=== PATIENT | female | born 1955 | race Caucasian/White ===

== ENCOUNTER 2018-12-22 10:00 | Observation (INO) ==
--- NOTE | 2018-12-22 11:59 | General Surg History&Physical ---
Date of Encounter: 12/22/18 Time of Encounter: 11:00 Assessment and Plan (1) Cutaneous fistula Current Visit: Yes Status: Acute The assessment and plan as outlined above was discussed with the patient and/or family members who expressed understanding and agreement. All questions were answered. Culture wound now; then place packing Diabetic diet, then NPO at Midnight IVF at midnight CBC, BMP, PT/INR ATBX pending gram stain (start now or on-call to OR) GI and DVT prophylaxis EKG for baseline recommendations, risks, and benefits have been expressly reviewed by Dr. Kay in the office and a signed consent is placed on the patient's hard chart. We w ill plan for surgical intervention on 12/23/2018 including robotic diagnostic laparoscopy. (2) T2DM (type 2 diabetes mellitus) Current Visit: Yes Status: Chronic The assessment and plan as outlined above was discussed with the patient and/or family members who expressed understanding and agreement. All questions were answered. 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 All questions were answered. Continue home meds when applicable Normotensive (4) CKD (chronic kidney disease) stage 3, GFR 30-59 ml/min Current Visit: Yes Status: Chronic The assessment and plan as outlined above was discussed with the patient and/or family members who expressed understanding and agreement. All questions were answered. Labs pending Recommendations based on labs (5) Atherosclerotic heart disease Current Visit: Yes Status: Chronic The assessment and plan as outlined above was discussed with the patient and/or family members who expressed understanding and agreement. All questions were answered. [facility] 06/2017 noted minimal atherosclerotic coronary artery disease, LVEF 55%, distal LAD diffuse disease, negative remodeling. No stents were placed. Last echo with LVEF 60 to 65%, mild diastolic dysfunction. She denied any symptoms of angina as outpatient and is able to complete greater than 4 Mets of activity. We will obtain a baseline EKG. No further cardiovascular workup indicated at this time. Qualifiers: Coronary Disease-Associated Artery/Lesion type: [place] artery [place] vs. transplanted heart: [place] heart Associated angina: without angina Qualified Code(s): I25.10 - Atherosclerotic heart disease of [place] coronary artery without angina pectoris History of Present Illness Chief complaint: drainage from belly button HPI: Ms. Morales is a 63 year old female who presents for add-on robotic diagnostic laparoscopy with Dr. Kay on . Sonali is well-know to our [facility] for aprox the last 2 years. She has a [recent] surgical history of attempted laparoscopic Teena fundoplication converted to open Teena fundoplication and hiatal hernia repair, lysis of adhesions for 30 minutes, explant of abdominal wall mesh by Dr. Hopper on 07/02/2017. Robotic incisional hernia repair with primary herniorrhaphy and 12 x 20 cm mesh, lysis of adhesions on 10/28/[address] Kay for which she has been followed in the office for umbilical drainage. She has had a wound vac placed on 11/13/2018 and noted significant improvement in follow-up on 11/20/2018. She then saw Dr. Kay on and stated the drainage had decreased and denied foul odor. She was recommended to continue the wound VAC for an additional 2 weeks and if that that time the cavity was not decreased significantly she may need return to the operating room. Per record review, she saw Dr. Kay on 12/15/2018 and the wound VAC was removed. She called the office on 12/16/2018 reporting that the wound VAC had been removed the day previous, packing placed into her site, and she was scheduled for surgery on 01/13/2019. She then began having copious amounts of thick, green/yellow, foul-smelling drainage. She was advised to come to the hospital for admission on 12/22/2018 and have her case added on for 12/23/2018. Presently, she denies fever, headache, dizziness, chest pain, shortness of breath, abdominal pain, urinary signs or symptoms, changes in bowel habits. She endorses drainage from the bellybutton as previously described. She has no other complaints. Past Med Surg Social Fam HX - Past Medical History Source: patient Medical history: coronary artery disease, diabetes, GERD, hypertension, s eizures, valvular heart disease, other Additional medical history: hard of hearing, seizure xa?, LHC, Psychiatric history: anxiety, depression - Past Surgical History Surgical History: appendectomy, cancer surgery, cholecystectomy, herniorrhaphy (H umbilical hernia repair 2006, hiatal hernia repair and medicine fundoplication 2018, robotic incisional hernia repair 2019), other Additional surgical history: tubal,lhc, mohs, teena - Social History Smoking Status: Former smoker Smokeless Tobacco Status: No Alcohol use: none Drug use: none Occupational status: retired Current living situation: Home - Independent Activity Level: Independent ambulation Recent Out of Country Travel Within the Last 8 Weeks: No Exposure or Possible Exposure to Illness During Travel: No Medications and Allergies Aspirin [Lo-Dose Aspirin EC] 81 mg PO QAM 10/23/16 [History] Atorvastatin Calcium [Lipitor] 20 mg PO HS 10/23/16 [History] Gabapentin [Neurontin] 600 mg PO TID 10/23/16 [History] Glimepiride [Amaryl] 2 mg PO BID 10/23/16 [History] Insulin Glargine,Hum.rec.anlog [Lantus Solostar] 80 unit SQ QAM 10/23/16 [His tory] Liraglutide [Victoza 2-Thuan] 1.8 mg SQ QAM 10/23/16 [History] dilTIAZem HCl [Diltiazem HCl] 120 mg PO QAM 10/23/16 [History] Cholecalciferol (D-3) [Vitamin D] 1,000 units PO QAM 07/02/18 [History] Nitroglycerin [Nitrostat] 0.4 mg SL PRN PRN 07/02/18 [History] Cyclobenzaprine [Flexeril] 10 mg PO HS PRN 07/03/18 [History] Insulin ASPART [Novolog Flexpen] 20 units SQ TIDWM 07/03/18 [History] Insulin Glargine,Hum.rec.anlog [Lantus Solostar] 50 units SQ HS 07/03/18 [History] Lisinopril [Zestril] 10 mg PO QAM 10/28/18 [History] Metoprolol [Lopressor] 25 mg PO BID 10/28/18 [History] OxyCODONE/APAP 5/325 [Percocet 5/325 MG] 1 each PO Q6HR PRN 7 Days #10 tablet 10/28/18 [Rx] Allergy/AdvReac Type Severity Reaction Status Date / Time No Known Allergies Allergy Verified 10/28/18 13:39 Review of Systems All systems PM: reviewed and no additional remarkable complaints except as stated All systems PM: The remainder of the systems were reviewed and are negative General Surgery Exam Initial Vital Signs Temp Pulse Resp BP Pulse Ox 97.7 F 63 16 97/61 97 12/22/18 11:43 12/22/18 11:43 12/22/18 11:43 12/22/18 11:43 12/22/18 11:43 Vital Signs Temp Pulse Resp BP Pulse Ox 12/22/18 11:43 97.7 F 63 16 97/61 97 Intake and Output 12/21/18 12/22/18 12/22/18 23:59 07:59 15:59 Other: Weight 85.899 kg Blood Glucose* 255 Patient Weight 12/22/18 23:59 Weight 85.899 kg VITAL SIGNS: Reviewed. See [facility] GENERAL: In no apparent distress. HEENT: Normocephalic, atraumatic, [place], pupils are equal and reactive, extraocular motions intact, oropharynx is pink and moist, there is no neck adenopathy or JVD noted. CHEST/RESPIRATORY: The thorax is free from signs of trauma. Lung sounds: clear to auscultation, normal respiratory effort CARDIAC: Regular rate and rhythm. Normal S1 and S2, without murmurs, gallops, or rubs. VASCULAR: No Edema. 2+ peripheral pulses. ABDOMEN: soft, nontender, active bowel sounds. Foul-smelling green drainage noted from the umbilicus. There is no surrounding cellulitis or induration. MUSCULOSKELETAL: Good range of motion of all major joints. Extremities without clubbing, cyanosis or edema. NEUROLOGIC EXAM: Alert and oriented x 3. Speech normal. Follows commands. PSYCHIATRIC: Mood normal. SKIN: No rash or lesions. Results - Labs 12/22/18 11:16 12/22/18 11:16 All other labs normal.
[2018-12-22 12:11] LABS: Basophils # 0.1 K/mcL (0.0-0.2); Basophils % 0.7 %; Eosinophils # 0.2 K/mcL (0.0-0.6); Eosinophils % 2.8 %; Hematocrit 33.4 % (35.3-44.9); Hemoglobin 10.7 g/dL (11.5-15.4); Immature Granulocytes % 0.2 % (0-4); Lymphocytes # 1.7 K/mcL (0.6-4.6); Lymphocytes % 20.3 %; Mean Corpuscular Hemoglobin 27.6 pg (28.0-33.3); Mean Corpuscular Volume 86.1 fL (83.0-100.0); Monocytes # 0.6 K/mcL (0.0-1.3); Monocytes % 7.2 %; Neutrophils # 5.7 K/mcL (1.6-8.9); Platelet Count 228 K/mcL (140-400); Red Blood Count 3.88 M/mcL (3.82-4.97); Red Cell Distribution Width 14.7 % (11.5-14.5); Segmented Neutrophils % 68.8 %; White Blood Count 8.3 K/mcL (4.3-11.1)
[2018-12-22 12:21] LABS: Prothrombin Time 11.4 Seconds (9.4-12.1)
[2018-12-22] MEDS ORDERED: Dextrose Gel 15 GM/37.5 ML TUBE PO PRN ×2 (12:21)
[2018-12-22 12:24] LABS: Activated Partial Thrombo Time 34.6 Seconds (26.0-36.0)
[2018-12-22] MEDS: Pantoprazole 40 MG VIAL IVP SCH (12:35)
[2018-12-22 12:44] LABS: Calcium 9.2 mg/dL (8.6-10.3)
[2018-12-22 13:04] LABS: Estimated Average Glucose 160 mg/dl
[2018-12-22] MEDS: Insulin LISPRO 300 UNITS/3 ML VIAL SQ SCH ×3 (13:18→23:49)
[2018-12-22] MEDS: Piperacillin/Tazobactam 3.375 GM in 0.9 % Sodium Chloride Mini Bag 100 ML IVPB SCH ×2 (17:48→23:41)
[2018-12-22] MEDS: 0.9 % Sodium Chloride 1,000 ML IVC SCH (23:41)
[2018-12-23] MEDS: Insulin LISPRO 300 UNITS/3 ML VIAL SQ SCH ×4 (06:01→23:53)
[2018-12-23] MEDS: 0.9 % Sodium Chloride 1,000 ML IVC SCH ×3 (07:43→23:27)
[2018-12-23] MEDS: Pantoprazole 40 MG VIAL IVP SCH (07:44)
[2018-12-23] MEDS: Piperacillin/Tazobactam 3.375 GM in 0.9 % Sodium Chloride Mini Bag 100 ML IVPB SCH ×2 (07:44→18:37)
--- NOTE | 2018-12-23 10:13 | General Surgery Progress Note ---
Date of Encounter: 12/23/18 Time of Encounter: 09:00 - Assessment and Plan (1) Cutaneous fistula Current Visit: Yes Status: Acute Wound cultures pending- preliminary shows that bacteria is present, few gram positive and gram negative bacteria present IV antibiotics- Zosyn Plan to proceed to the operating room for a diagnostic laparosocpy in the next [address] 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 Diabetes mellitus complication status: with kidney complications Diabetes mellitus complication detail: with chronic kidney disease Chronic kidney disease stage: stage 3 (moderate) Qualified Code(s): E11.22 - Type 2 diabetes mellitus with diabetic chronic kidney disease; N18.3 - Chronic kidney disease, stage 3 (moderate); Z79.4 - snf (current) use of insulin (3) HTN, goal below 130/80 Current Visit: Yes Status: Chronic Normotensive Resume home regimen of Metoprolol (4) CKD (chronic kidney disease) stage 3, GFR 30-59 ml/min Current Visit: Yes Status: Chronic Stable Repeat am labs I&Os (5) Atherosclerotic heart disease Current Visit: Yes Status: Chronic Qualifiers: Coronary Disease-Associated Artery/Lesion type: [place] artery [place] vs. transplanted heart: [place] heart Associated angina: without angina Qualified Code(s): I25.10 - Atherosclerotic heart disease of [place] coronary artery without angina pectoris (6) DVT prophylaxis Current Visit: Yes Status: Acute Ambulate hallways TID with assistance EPCDs to bilateral lower extremities for DVT prophylaxis Subjective Patient reports: no new complaints, voiding w/o difficulty, afebrile, other (Patient reports continued purulent, foul drainage from her wound) Objective Vital Signs - Last 8 Hours Temp Pulse Resp BP Pulse Ox 12/23/18 06:53 97.7 F 68 18 120/65 97 12/23/18 02:52 97.6 F 68 15 129/63 97 Intake and Output 12/22/18 12/23/18 12/23/18 23:59 07:59 15:59 Intake Total 100 / 100 1100 / 1100 Balance 100 / 100 1100 / 1100 Intake: IV Fluids 100 / 100 1100 / 1100 0.9 % Sodium Chloride 1,000 ML 1000 / 1000 @ 125 mls/hr IVC .Q8H DIMITRI Rx#: [id number] Zosyn 3.375 GM In 0.9 % Sodium 100 / 100 100 / 100 Chloride (Mini-Bag +) 100 ML @ 25 mls/hr IVPB Q8HR DIMITRI Rx#: [id number] Other: Meal NPO for Breakfast Blood Glucose* 210 71 - General physical appearance well developed, well nourished, no distress - Eyes normal ocular movement - ENT normal mucosa, atraumatic, normocephalic - Neck Neck exam: trachea midline - Respiratory normal respiratory effort, clear to auscultation - Cardiovascular Cardiovascular exam: Present: RRR - Abdomen Abdomen: Present: bowel sounds present, soft, non tender, wound (open with purulent, foul drainage noted (umbilical), no surrounding erythema or induration noted.) - Neurologic CN 2-12 grossly intact - Musculoskeletal normal gait, normal posture - Psychiatric oriented to time, oriented to person, oriented to place, speech is normal, memory intact - Labs 12/22/18 11:16 12/22/18 11:16 Diabetes panel 12/22/18 12/22/18 Range/Units 11:16 11:16 Sodium 140 (136-145) mEq/L Potassium 4.0 (3.5-5.1) mEq/L Chloride 102 (98-107) mEq/L Carbon Dioxide 29 (23-29) mEq/L BUN 21 (8-23) mg/dL Creatinine 1.44 H (0.60-1.20) mg/dL Glucose 251 H (70-105) mg/dL Hemoglobin A1c 7.2 H ( - 5.6) % Calcium 9.2 (8.6-10.3) mg/dL Calcium panel 12/22/18 Range/Units 11:16 Calcium 9.2 (8.6-10.3) mg/dL Pituitary panel 12/22/18 Range/Units 11:16 Sodium 140 (136-145) mEq/L Potassium 4.0 (3.5-5.1) mEq/L Chloride 102 (98-107) mEq/L Carbon Dioxide 29 (23-29) mEq/L BUN 21 (8-23) mg/dL Creatinine 1.44 H (0.60-1.20) mg/dL Glucose 251 H (70-105) mg/dL Calcium 9.2 (8.6-10.3) mg/dL Adrenal panel 12/22/18 Range/Units 11:16 Sodium 140 (136-145) mEq/L Potassium 4.0 (3.5-5.1) mEq/L Chloride 102 (98-107) mEq/L Carbon Dioxide 29 (23-29) mEq/L BUN 21 (8-23) mg/dL Creatinine 1.44 H (0.60-1.20) mg/dL Glucose 251 H (70-105) mg/dL Calcium 9.2 (8.6-10.3) mg/dL Consult Discharge Plan - Plan Referrals: NONE,PCP [Primary Care Provider] - - Attending Attestation For this encounter, I have reviewed the SILVERWARE BUFFER or PA documentation, treatment plan, and medical decision making; and I have had face to face time with this patient.
--- NOTE | 2018-12-23 10:58 | Electrocardiograph Report ---
[place] [id number] Test Date: 2018-12-22 Pat Name: Sonali Morales Department: 115 Room: 3A34 Gender: F Septic Cleaner: : 1955 Requested By: Isadora Gipson Order Number: [id number] Reading MD: Wei Gaspar Measurements Intervals [place] Rate: 60 P: 33 NM: 148 QRS: -13 QRSD: 81 T: 19 QT: 405 QTc: 406 Interpretive Statements SINUS RHYTHM LOW QRS VOLTAGE IN PRECORDIAL LEADS Electronically Signed On 12-23-2018 10:57:01 EDT by Wei Gaspar
[2018-12-23] MEDS: D5% in Water 1,000 ML IVC PRN ×2 (11:41→22:09)
[2018-12-23] MEDS: *HR* Dextrose 50 % in Water (Syg) 50 ML SYRINGE IVP PRN (12:00)
[2018-12-23] MEDS: Gabapentin 300 MG CAPSULE PO SCH ×2 (13:59→21:03)
[2018-12-24] MEDS: *HR* Dextrose 50 % in Water (Syg) 50 ML SYRINGE IVP PRN
[2018-12-24 05:26] LABS: White Blood Count 6.9 K/mcL (4.3-11.1)
[2018-12-24 05:27] LABS: Basophils # 0.1 K/mcL (0.0-0.2); Eosinophils # 0.4 K/mcL (0.0-0.6); Eosinophils % 5.8 %; Hematocrit 32.9 % (35.3-44.9); Hemoglobin 10.3 g/dL (11.5-15.4); Immature Granulocytes % 0.3 % (0-4); Lymphocytes % 29.4 %; Mean Corpuscular HGB Conc 31.3 g/dL (31.6-35.5); Mean Corpuscular Hemoglobin 27.2 pg (28.0-33.3); Mean Corpuscular Volume 86.8 fL (83.0-100.0); Monocytes # 0.6 K/mcL (0.0-1.3); Monocytes % 7.9 %; Neutrophils # 3.9 K/mcL (1.6-8.9); Platelet Count 216 K/mcL (140-400); Red Blood Count 3.79 M/mcL (3.82-4.97); Red Cell Distribution Width 14.7 % (11.5-14.5); Segmented Neutrophils % 55.6 %
[2018-12-24 05:40] LABS: Calcium 8.8 mg/dL (8.6-10.3); Potassium 3.6 mEq/L (3.5-5.1)
[2018-12-24] MEDS: Insulin LISPRO 300 UNITS/3 ML VIAL SQ SCH ×3 (06:21→17:25)
[2018-12-24] MEDS: D5% in Water 1,000 ML IVC PRN (07:21)
[2018-12-24] MEDS: Pantoprazole 40 MG VIAL IVP SCH (07:22)
[2018-12-24] MEDS: Gabapentin 300 MG CAPSULE PO SCH ×3 (07:23→22:33)
[2018-12-24] MEDS: Piperacillin/Tazobactam 3.375 GM in 0.9 % Sodium Chloride Mini Bag 100 ML IVPB SCH ×3 (07:24→16:15)
[2018-12-24] MEDS: 0.9 % Sodium Chloride 1,000 ML IVC SCH ×3 (07:27→20:00)
[2018-12-24] MEDS ORDERED: Nitroglycerin 0.4 MG TAB.SUBL SL PRN ×2 (07:51→18:53)
[2018-12-24] MEDS ORDERED: dilTIAZem HCl 60 MG TABLET PO SCH ×2 (09:00→10:07)
[2018-12-24] MEDS ORDERED: Dexamethasone 4 MG/ML VIAL ONE (15:30)
[2018-12-24] MEDS ORDERED: Lidocaine -MPF 2% 2 ML VIAL ONE (15:30)
[2018-12-24] MEDS ORDERED: *HR* Succinylcholine 200 MG/10 ML VIAL IVP ONE (15:30)
[2018-12-24] MEDS ORDERED: Ondansetron 4 MG/2 ML VIAL ONE (15:30)
[2018-12-24] MEDS ORDERED: *HR* FentaNYL (PF) 100 MCG/2 ML VIAL ONE (15:30)
[2018-12-24] MEDS ORDERED: *HR* Propofol 200 MG/20 ML VIAL IVP ONE (15:31)
[2018-12-24] MEDS ORDERED: *HR* Rocuronium Bromide 50 MG/5 ML VIAL ONE (15:35)
--- NOTE | 2018-12-24 15:42 | Anesthesia Evaluation PreOp ---
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: Seizures (last seizure 5 yrs ago), Other (anxiety, depression) Other Medical History: Diabetes Type II, GERD (resolved since Teena) Anesthesia History: No Prior Anesthetic Complications, Past Anesthesia (BTL, cholecystectomy, Umbilical hernia, D&C, Mohs, LHC, Teena fundoplication, lysis of adhesions) Alcohol Use: none Drug use: none Medications and Allergies Aspirin [Lo-Dose Aspirin EC] 81 mg PO QAM 10/23/16 [History] Atorvastatin Calcium [Lipitor] 20 mg PO HS 10/23/16 [History] Gabapentin [Neurontin] 600 mg PO TID 10/23/16 [History] Glimepiride [Amaryl] 2 mg PO BID 10/23/16 [History] Insulin Glargine,Hum.rec.anlog [Lantus Solostar] 80 unit SQ QAM 10/23/16 [History] dilTIAZem HCl [Diltiazem HCl] 120 mg PO QAM 10/23/16 [History] Cholecalciferol (D-3) [Vitamin D] 1,000 units PO QAM 07/02/18 [History] Nitroglycerin [Nitrostat] 0.4 mg SL PRN PRN 07/02/18 [History] Cyclobenzaprine [Flexeril] 10 mg PO HS PRN 07/03/18 [History] Insulin ASPART [Novolog Flexpen] 20 units SQ TIDWM 07/03/18 [History] Insulin Glargine,Hum.rec.anlog [Lantus Solostar] 50 units SQ HS 07/03/18 [History] Metoprolol [Lopressor] 25 mg PO BID 10/28/18 [History] OxyCODONE/APAP 5/325 [Percocet 5/325 MG] 1 each PO Q6HR PRN 7 Days #10 tablet 10/28/18 [Rx] Lisinopril-HCTZ 10-12.5 [Prinzide 10-12.5] 1 tab PO DAILY 12/22/18 [History] Semaglutide [Ozempic] 0.25 mg SQ GARCIA 12/22/18 [History] Allergy/AdvReac Type Severity Reaction Status Date / Time No Known Allergies Allergy Verified 12/22/18 19:13 - Meds/Allergy Pre-op Review Medications Reviewed: Yes Allergies Reviewed: Yes Beta Blockers on Current Med List: Yes If Beta Blockers taken, Date/Time (Last Dose taken): 723am today Anesthesia Results - Labs 12/24/18 05:12 12/24/18 05:12 - Imaging EKG: report reviewed (NSR) Additional studies: Procedures Performed: Transradial access LEFT HEART CATH Indications: Unstable Angina Impressions: Minimal atherosclerotic coronary artery disease. The left ventricle is normal and has normal contractility EF 55% Distal LAD diffusely disease/negative remodeling) Anesthesia Exam Vital Signs/O2 Sat, Most Current Temp Pulse Resp BP Pulse Ox 97.8 F 60 16 125/81 97 12/24/18 15:13 12/24/18 15:13 12/24/18 15:13 12/24/18 15:13 12/24/18 15:13 Weight: 88kg NPO (# of Hours): >8 - HEENT Pupil (Motor): Pupils equal, EOMI Mallampati: II Teeth: Normal Oral Opening: Greater than 3 - WRAPPER HANDS SPRAYER LOC: Oriented WRAPPER HANDS SPRAYER Motor: Normal RUE, Normal LUE, Normal RLE, Normal LLE, Normal Face WRAPPER HANDS SPRAYER Sensory: Normal: RUE, LUE, RLE, LLE, Face - Cardiac Rhythm: Regular - Pulmonary Breath Sounds: bilateral Clear Respiratory Effort: Symmetrical Anesthesia Assess/Plan ASA Score: 2 Level of consciousness: Cooperative Anesthetic Plan: General Monitoring Plan: Standard Monitors Recovery Plan: PACU
[2018-12-24] MEDS ORDERED: *HR* Meperidine 25 MG/ML SYRINGE IVP PRN (16:09)
[2018-12-24] MEDS ORDERED: *HR* Promethazine 25 MG/ML VIAL IVP PRN (16:09)
[2018-12-24] MEDS ORDERED: Ondansetron 4 MG/2 ML VIAL IVP ONE ×2 (16:09→18:53)
[2018-12-24] MEDS ORDERED: *HR* HYDROmorphone (PF) 1 MG/ML SYRINGE IVP PRN (16:09)
[2018-12-24] MEDS ORDERED: *HR* OxyCODONE Immed Rel 5 MG TABLET PO PRN (16:09)
[2018-12-24] MEDS ORDERED: EPHEDrine 50 MG/ML VIAL ONE (16:36)
[2018-12-24] MEDS ORDERED: *HR* PHENYLEPHRINE 1,000 MCG/10 ML SYRINGE IVP ONE (16:37)
[2018-12-24] MEDS ORDERED: *HR* HYDROMORPHONE 2 MG/ML VIAL ONE (17:49)
--- NOTE | 2018-12-24 18:36 | Anesthesia Evaluation Post Op ---
Date of Encounter: 12/24/18 Time of Encounter: 18:35 - Vital Signs Vital Signs: Vital Signs/O2 Sat, Most Current Temp Pulse Resp BP Pulse Ox 98.1 F 72 10 136/69 95 12/24/18 18:05 12/24/18 18:25 12/24/18 18:25 12/24/18 18:25 12/24/18 18:25 - Lungs Lungs: Clear Ascult./Percussion - Airway Airway: Non-obstructed - Cardiovascular Regular Rate, Baseline Rhythm - Mental Status Mental Status: Alert & Oriented, Answers Appropriately - Pain Pain Scale: 0 - Nausea Vomiting Nausea Vomiting: Not Present - Hydration Hydration: Tolerates oral liquids, Has not voided - Discharge PostOp Status: Transfer Patient to floor
[2018-12-24] MEDS ORDERED: D5% in Water 1,000 ML IVC PRN (18:53)
[2018-12-24] MEDS ORDERED: *HR* Dextrose 50 % in Water (Syg) 50 ML SYRINGE IVP PRN (18:53)
[2018-12-24] MEDS ORDERED: Dextrose Gel 15 GM/37.5 ML TUBE PO PRN ×2 (18:53)
[2018-12-25] MEDS: Piperacillin/Tazobactam 3.375 GM in 0.9 % Sodium Chloride Mini Bag 100 ML IVPB SCH ×2 (01:00→10:36)
[2018-12-25] MEDS: Insulin LISPRO 300 UNITS/3 ML VIAL SQ SCH ×4 (03:20→12:15)
[2018-12-25] MEDS ORDERED: D5% in Water 1,000 ML IVC PRN (07:53)
[2018-12-25] MEDS ORDERED: Dextrose Gel 15 GM/37.5 ML TUBE PO PRN (07:53)
[2018-12-25] MEDS: 0.9 % Sodium Chloride 1,000 ML IVC SCH (08:03)
[2018-12-25] MEDS ORDERED: Pantoprazole 40 MG VIAL IVP SCH (09:00)
[2018-12-25] MEDS ORDERED: dilTIAZem HCl 60 MG TABLET PO SCH (09:00)
[2018-12-25] MEDS ORDERED: Aspirin Enteric Coated 81 MG Tablet PO SCH (09:00)
[2018-12-25] MEDS ORDERED: *HR* Glimepiride 2 MG TABLET PO SCH (09:00)
[2018-12-25] MEDS: Gabapentin 300 MG CAPSULE PO SCH ×2 (09:49→16:08)
[2018-12-25 11:17] VITALS: BP 128/73
--- NOTE | 2018-12-25 12:46 | Discharge Summary ---
Orders not resulted at time of discharge: Pending orders 12/22/18 17:25 Culture,Anaerobic [RM] Stat Fungal Culture [MYC] Stat Date of Encounter: 12/25/18 Time of Encounter: 12:52 - Discharge Diagnosis (1) Cutaneous fistula Priority: Primary Status: Resolved Comments: Status post mesh explantation. 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 transplanted heart: [place] heart Associated angina: without angina Qualified Code(s): I25.10 - Atherosclerotic heart disease of [place] coronary artery without angina pectoris General Surgery Exam Initial Vital Signs Temp Pulse Resp BP Pulse Ox 97.7 F 63 16 97/61 97 12/22/18 11:43 12/22/18 11:43 12/22/18 11:43 12/22/18 11:43 12/22/18 11:43 Vital Signs Temp Pulse Resp BP Pulse Ox 12/25/18 11:15 98.9 F 89 18 128/73 94 12/25/18 07:10 98.4 F 90 15 104/62 93 12/25/18 04:06 98.0 F 83 14 109/53 93 12/24/18 22:00 98.2 F 72 16 120/86 98 12/24/18 21:10 98.2 F 70 16 164/80 98 12/24/18 20:00 98.1 F 70 16 123/69 98 12/24/18 19:35 98.1 F 70 17 126/60 98 12/24/18 19:00 98.0 F 66 16 121/77 98 12/24/18 18:35 98.3 F 70 10 137/57 100 12/24/18 18:25 72 10 136/69 95 12/24/18 18:15 70 10 127/58 98 12/24/18 18:05 98.1 F 71 14 128/58 100 12/24/18 15:13 97.8 F 60 16 125/81 97 Intake and Output 12/24/18 12/25/18 12/25/18 23:59 07:59 15:59 Intake Total 1999 400 / 400 Output Total 0 / 0 Balance 1979 400 / 400 Intake: IV Fluids 1999 Zosyn 3.375 GM In 0.9 % Sodium 100 / 300 Chloride (Mini-Bag +) 100 ML @ 25 mls/hr IVPB Q8HR [facility] Rx#: [id number] Oral 400 / 400 Output: Urine 0 / 0 Estimated Blood Loss Other: Stool Size Small Stool Consistency liquid Stool Color Brown # Voids 3 1 # Bowel Movements 1 Weight 88.6 kg Blood Glucose* 146 270 304 Patient Weight 12/25/18 23:59 Weight 88.6 kg - General physical appearance well nourished, no distress, no pain, obese - ENT atraumatic, normocephalic, Other ([place]CT[place]) - Neck trachea midline - Respiratory normal expansion, normal respiratory effort - Cardiovascular Cardiovascular exam: Present: RRR - Abdomen Abdomen general surgery: Present: bowel sounds present, soft, tender (expected postoperative) - Incision Incision: Present: open (umbilical are is open with packing. Bloody drainage noted. Otherwise incisions are c/d/i.) - Integumentary Integumentary general surgery: Present: warm and dry - Neurologic Present: normal sensation - Musculoskeletal Present: normal posture - Psychiatric Psychiatric general surgery: Present: A&Ox3 - Hospital Course Hospital course: Ms. Morales is a 63 year old female who presented on 12/22/2018 as a direct minute from Dr. Kay for cutaneous fistula. Patient was originally scheduled to have surgical intervention on 01/13/2019 however she called the office noting that she was having increased and foul-smelling drainage from her umbilicus. Cultures were obtained in the wound culture was positive for Staphylococcus aureus (MSSA). Anaerobic and fungal culture remains incubating. She was treated with IV Zosyn while in the hospital. She was taken to the operating room on 12/24/2018 where she underwent mesh explantation with Dr. Kya. Her umbilical incision remains open with packing at this time. She is ambulating and voiding without difficulty, tolerating a diet without nausea or vomiting, vital signs are stable, and she is afebrile. We will begin discharge planning to home with a follow-up in approximately 7 to 10 days. Patient states her daughter will perform her packing and she has no needs at this time. Given her diabetic and hypertension medications, she will be discharged on doxycycline and Augmentin - Time Spent with Patient Total time spent providing and/or coordinating discharge services: - Discharge Medications Prescriptions: New Amoxicillin/Clavulanate [Augmentin] 875 mg PO BIDWM 7 Days #14 tablet Doxycycline 100 mg PO BID 7 Days #14 capsule OxyCODONE Immed Rel [Roxicodone 5 MG] 5 mg PO Q6HR PRN 5 Days #20 tablet PRN Reason: Severe Pain Continued Atorvastatin Calcium [Lipitor] 20 mg PO HS Insulin Glargine,Hum.rec.anlog [Lantus Solostar] 80 unit SQ QAM dilTIAZem HCl [Diltiazem HCl] 120 mg PO QAM Gabapentin [Neurontin] 600 mg PO TID Glimepiride [Amaryl] 2 mg PO BID Aspirin [Lo-Dose Aspirin EC] 81 mg PO QAM Nitroglycerin [Nitrostat] 0.4 mg SL PRN PRN PRN Reason: Chest Pain Cholecalciferol (D-3) [Vitamin D] 1,000 units PO QAM Cyclobenzaprine [Flexeril] 10 mg PO HS PRN PRN Reason: Muscle Spasm Insulin ASPART [Novolog Flexpen] 20 units SQ TIDWM Insulin Glargine,Hum.rec.anlog [Lantus Solostar] 50 units SQ HS Metoprolol [Lopressor] 25 mg PO BID OxyCODONE/APAP 5/325 [Percocet 5/325 MG] 1 each PO Q6HR PRN 7 Days #10 tablet PRN Reason: Pain Lisinopril-HCTZ 10-12.5 [Prinzide 10-12.5] 1 tab PO DAILY Semaglutide [Ozempic] 0.25 mg SQ GARCIA Home Medications: Aspirin [Lo-Dose Aspirin EC] 81 mg PO QAM 10/23/16 [History] Atorvastatin Calcium [Lipitor] 20 mg PO HS 10/23/16 [History] Gabapentin [Neurontin] 600 mg PO TID 10/23/16 [History] Glimepiride [Amaryl] 2 mg PO BID 10/23/16 [History] Insulin Glargine,Hum.rec.anlog [Lantus Solostar] 80 unit SQ QAM 10/23/16 [History] dilTIAZem HCl [Diltiazem HCl] 120 mg PO QAM 10/23/16 [History] Cholecalciferol (D-3) [Vitamin D] 1,000 units PO QAM 07/02/18 [History] Nitroglycerin [Nitrostat] 0.4 mg SL PRN PRN 07/02/18 [History] Cyclobenzaprine [Flexeril] 10 mg PO HS PRN 07/03/18 [History] Insulin ASPART [Novolog Flexpen] 20 units SQ TIDWM 07/03/18 [History] Insulin Glargine,Hum.rec.anlog [Lantus Solostar] 50 units SQ HS 07/03/18 [History] Metoprolol [Lopressor] 25 mg PO BID 10/28/18 [History] OxyCODONE/APAP 5/325 [Percocet 5/325 MG] 1 each PO Q6HR PRN 7 Days #10 tablet 10/28/18 [Rx] Lisinopril-HCTZ 10-12.5 [Prinzide 10-12.5] 1 tab PO DAILY 12/22/18 [History] Semaglutide [Ozempic] 0.25 mg SQ GARCIA 12/22/18 [History] Amoxicillin/Clavulanate [Augmentin] 875 mg PO BIDWM 7 Days #14 tablet 12/25/18 [Rx] Doxycycline 100 mg PO BID 7 Days #14 capsule 12/25/18 [Rx] OxyCODONE Immed Rel [Roxicodone 5 MG] 5 mg PO Q6HR PRN 5 Days #20 tablet 12/25/18 [Rx] Allergies/Adverse Reactions: Allergy/AdvReac Type Severity Reaction Status Date / Time No Known Allergies Allergy Verified 12/22/18 19:13 Date of admission: 12/22/18 10:41 Primary care physician: PCP NONE Discharging clinician: Raul Kay (Jerri Gipson APRN-KALA) Anticipated date of discharge: 12/25/18 Labs on day of discharge: Labs from last 24 hours 12/24/18 12/24/18 12/24/18 19:44 11:25 05:46 POC Glucose 146 H 91 71 12/24/18 12/23/18 01:08 23:51 POC Glucose 87 63 L Preliminary micro results at discharge 12/22/18 17:25 Anaerobic Culture - Preliminary Fistula Culture is incubating. - Patient Status Disposition: Home, Self-Care Condition: Good Functional capacity at discharge: independent ambulation Overall status at discharge: patient is progressing back to baseline - Discharge Instructions Instructions: Surgical Site Infections (GEN) Follow Up With: Yaneli Zhang MD [Non-Partnered Physician] - Isadora Gipson CNP [Advanced Practice Nurse] - 01/05/19 3:00 pm Additional Instructions: General Surgical Discharge Instructions 1. No pushing, pulling, or lifting greater than 15 lbs for 6weeks. 2. You may remove your dressings and shower beginning today, but no tub baths, soaking, or swimming for 2 weeks. 3. No driving for two weeks unless otherwise specified and then you may resume driving when you are off narcotics and are safe to react in a car. 4. Continue your previous chronic pain relief regimen. 5. Take stool softeners (Colace) or a water based laxative (Miralax) while taking narcotics. You may hold for loose stools. 6. Report any fevers greater than 100.5F, increase abdominal discomfort, drainage that looks like pus, increased redness or pain at the surgical site, or any vomiting. 7. Report any pain in the calves, shortness of breath, or rapid heartbeat. 8. Follow-up in the office as directed. 9. If you were prescribed antibiotics, do not stop them without talking to your provider. Daily Wound Care: Remove dressing and packing. Wash with antibacterial soap. Pat dry. Repack (for [place] purposes only-do not pack into the abdomen) with 1/4 in plain gauze. Cover with a dry dressing. Tape to secure. - Diet and Activity Activity: increase activity as tolerated Diet: diabetic diet
--- NOTE | 2018-12-25 15:31 | Operative Note ---
Date of procedure: 12/24/18 Pre-op diagnosis: Infected foreign body Post-op diagnosis: same Procedure: Robotic diagnostic laparoscopy with removal of infected foreign body Anesthesia: EPI Surgeon: Raul Kay Was there an assistant surveyor present: No Estimated blood loss (cc): 25 Specimen: 0 Condition: stable Disposition: floor Procedure in Detail: After informed consent, patient taken operating room placed in supine position. After adequate sedation and anesthesia the abdomen was prepped and draped. Patient had drainage from the umbilicus was consistent with purulent material. A 12 mm incision was created on the left lateral flank at the mid axillary line. A 12 mm cannula was then inserted under direct visualization and the abdomen. Pneumoperitoneum was created. There were 2 additional 8 mm cannulas placed. Has able to identify what appeared to be necrotic preperitoneal fat. There was purulent material around this. This was dissected free did from the underlying mesh. The mesh was then from the abdominal wall with sharp and blunt dissection. Once it was fully removed it was placed in endoscopic bag. The hernia defect was then again identified. The sutures were removed as well. The Endobag was removed through the left flank incision. The pneumoperitoneum was evacuated. The ports were removed. The fascia of the 12 mm cannula site was closed with 0 Vicryl suture. Skin was closed claudia. The patient also received 30 mL of Marcaine in the incisions.
[2018-12-25] MEDS ORDERED: Insulin LISPRO 300 UNITS/3 ML VIAL SQ SCH (21:00)
== END 2018-12-25 16:38 | disposition home health service (06) ==
LOC: 3ANU
PROVIDERS: ADMIT Surgery; ATTEND Surgery

== ENCOUNTER 2020-04-16 17:07 | Observation (INO) ==
[2020-04-16] MEDS ORDERED: Nitroglycerin 0.4 MG TAB.SUBL SL PRN (17:30)
[2020-04-16 17:43] LABS: Prothrombin Time 11.7 Seconds (9.4-12.1)
[2020-04-16 17:45] LABS: Basophils # 0.1 K/mcL (0.0-0.2); Basophils % 0.7 %; Eosinophils # 0.3 K/mcL (0.0-0.6); Eosinophils % 2.4 %; Hematocrit 39.8 % (35.3-44.9); Hemoglobin 12.8 g/dL (11.5-15.4); Immature Granulocytes % 0.2 % (0-4); Lymphocytes # 2.8 K/mcL (0.6-4.6); Lymphocytes % 23.1 %; Mean Corpuscular HGB Conc 32.2 g/dL (31.6-35.5); Mean Corpuscular Hemoglobin 28.4 pg (28.0-33.3); Mean Corpuscular Volume 88.2 fL (83.0-100.0); Mean Platelet Volume 10.4 fL (9.4-12.4); Monocytes # 0.8 K/mcL (0.0-1.3); Monocytes % 6.3 %; Neutrophils # 8.1 K/mcL (1.6-8.9); Platelet Count 230 K/mcL (140-400); Red Blood Count 4.51 M/mcL (3.82-4.97); Red Cell Distribution Width 12.4 % (11.5-14.5); Segmented Neutrophils % 67.3 %; White Blood Count 12.1 K/mcL (4.3-11.1)
[2020-04-16 17:46] LABS: Activated Partial Thrombo Time 30.4 Seconds (26.0-36.0)
[2020-04-16] MEDS: Aspirin 81 MG TAB.CHEW PO SCH (17:49)
[2020-04-16 18:00] LABS: BUN/Creatinine Ratio 19 (6-26); Blood Urea Nitrogen 23 mg/dL (8-23); Calcium 9.2 mg/dL (8.6-10.3); Carbon Dioxide 25 mEq/L (23-29); Chloride 107 mEq/L (98-107); Glucose 60 mg/dL (70-105); Osmolality,Calculated 294 (280-300); Potassium 3.7 mEq/L (3.5-5.1); Sodium 141 mEq/L (136-145); eGFR For African Americans 53 (> 60); eGFR For Non-African Americans 44 (> 60)
[2020-04-16 18:01] LABS: Troponin I < 0.03 ng/mL (< 0.04)
[2020-04-16] MEDS ORDERED: Morphine Sulfate 2 MG/ML SYRINGE IVP PRN (21:34)
[2020-04-16] MEDS ORDERED: Ondansetron 4 MG/2 ML VIAL IVP PRN (21:34)
[2020-04-16] MEDS: Cholecalciferol (D-3) 1,000 UNIT (25MCG) TABLET PO SCH (22:50)
[2020-04-16] MEDS ORDERED: Dextrose Gel 15 GM/37.5 ML TUBE PO PRN ×2 (23:35)
[2020-04-16] MEDS ORDERED: D5% in Water 1,000 ML IVC PRN (23:35)
[2020-04-17] MEDS: Insulin LISPRO 300 UNITS/3 ML VIAL SUBQ SCH ×4 (01:54→17:23)
[2020-04-17 03:00] LABS: Basophils # 0.1 K/mcL (0.0-0.2); Basophils % 0.6 %; Eosinophils # 0.2 K/mcL (0.0-0.6); Hematocrit 36.7 % (35.3-44.9); Hemoglobin 12.1 g/dL (11.5-15.4); Immature Granulocytes % 0.2 % (0-4); Lymphocytes # 2.7 K/mcL (0.6-4.6); Lymphocytes % 29.3 %; Mean Corpuscular Hemoglobin 29.4 pg (28.0-33.3); Mean Corpuscular Volume 89.1 fL (83.0-100.0); Mean Platelet Volume 10.3 fL (9.4-12.4); Monocytes # 0.7 K/mcL (0.0-1.3); Monocytes % 7.6 %; Neutrophils # 5.6 K/mcL (1.6-8.9); Platelet Count 195 K/mcL (140-400); Red Blood Count 4.12 M/mcL (3.82-4.97); Red Cell Distribution Width 12.3 % (11.5-14.5); Segmented Neutrophils % 60.3 %; White Blood Count 9.3 K/mcL (4.3-11.1)
[2020-04-17 03:09] LABS: Activated Partial Thrombo Time 30.1 Seconds (26.0-36.0)
[2020-04-17 03:27] LABS: Alanine Aminotransferase 14 Units/L (7-52); Albumin 3.6 g/dL (3.5-5.7); Albumin/Globulin Ratio 1.6 (1.1-2.2); Alkaline Phosphatase 87 Units/L (34-104); Aspartate Amino Transferase 12 Units/L (13-39); BUN/Creatinine Ratio 18 (6-26); Bilirubin,Total 0.6 mg/dL (0.3-1.0); Blood Urea Nitrogen 21 mg/dL (8-23); Calcium 8.6 mg/dL (8.6-10.3); Carbon Dioxide 28 mEq/L (23-29); Chloride 108 mEq/L (98-107); Chol/HDL Ratio 3.7 (0-4.9); Cholesterol 127 mg/dL (< 200); Globulin 2.2 g/dL (2.4-3.5); Glucose 116 mg/dL (70-105); HDL Cholesterol 34 mg/dL (40-59); LDL Cholesterol,Calculated 61 mg/dL (< 100); Osmolality,Calculated 296 (280-300); Potassium 3.5 mEq/L (3.5-5.1); Sodium 141 mEq/L (136-145); Total Protein 5.8 g/dL (6.4-8.9); Triglycerides 161 mg/dL (< 150); eGFR For African Americans 58 (> 60); eGFR For Non-African Americans 48 (> 60)
[2020-04-17 03:39] LABS: Thyroid Stimulating Hormone 2.991 mcIU/mL (0.340-5.600)
[2020-04-17] MEDS: *HR* Dextrose 50 % in Water (Vial) 50 ML VIAL IVP PRN ×2 (05:40→08:12)
[2020-04-17] MEDS ORDERED: Regadenoson 0.4 MG/5 ML SYRINGE IVP ONE (05:41)
[2020-04-17] MEDS ORDERED: Dextrose Gel 15 GM/37.5 ML TUBE PO PRN ×2 (08:27)
[2020-04-17] MEDS ORDERED: *HR* Dextrose 50 % in Water (Vial) 50 ML VIAL IVP PRN (08:27)
[2020-04-17] MEDS ORDERED: D5% in Water 1,000 ML IVC PRN (08:27)
[2020-04-17] MEDS ORDERED: Insulin DETEMIR 100 UNIT/ML X5UNITS SUBQ SCH (09:00)
[2020-04-17 09:26] LABS: Troponin I < 0.03 ng/mL (< 0.04)
[2020-04-17 09:32] LABS: Estimated Average Glucose 154 mg/dl
[2020-04-17] MEDS: Gabapentin 300 MG CAPSULE PO SCH ×3 (13:35→22:24)
[2020-04-17] MEDS: Cholecalciferol (D-3) 1,000 UNIT (25MCG) TABLET PO SCH (13:36)
[2020-04-17] MEDS: Cyanocobalamin (B-12) 1,000 MCG TABLET PO SCH (13:36)
[2020-04-17] MEDS: Aspirin Enteric Coated 81 MG Tablet PO SCH (13:36)
[2020-04-17] MEDS: Aspirin 81 MG TAB.CHEW PO SCH (13:42)
[2020-04-17] MEDS ORDERED: Isovue-370 500 ML BOTTLE IVP ONE (21:57)
[2020-04-18] MEDS: Insulin LISPRO 300 UNITS/3 ML VIAL SUBQ SCH ×3 (00:31→11:30)
[2020-04-18 02:44] LABS: Basophils # 0.1 K/mcL (0.0-0.2); Basophils % 0.7 %; Eosinophils # 0.3 K/mcL (0.0-0.6); Hematocrit 37.6 % (35.3-44.9); Hemoglobin 12.1 g/dL (11.5-15.4); Immature Granulocytes % 0.3 % (0-4); Lymphocytes # 2.7 K/mcL (0.6-4.6); Lymphocytes % 27.6 %; Mean Corpuscular HGB Conc 32.2 g/dL (31.6-35.5); Mean Corpuscular Hemoglobin 28.7 pg (28.0-33.3); Mean Corpuscular Volume 89.1 fL (83.0-100.0); Mean Platelet Volume 10.6 fL (9.4-12.4); Monocytes # 0.9 K/mcL (0.0-1.3); Monocytes % 8.7 %; Neutrophils # 5.9 K/mcL (1.6-8.9); Platelet Count 207 K/mcL (140-400); Red Blood Count 4.22 M/mcL (3.82-4.97); Red Cell Distribution Width 12.4 % (11.5-14.5); Segmented Neutrophils % 59.7 %; White Blood Count 9.8 K/mcL (4.3-11.1)
[2020-04-18 03:01] LABS: BUN/Creatinine Ratio 16 (6-26); Blood Urea Nitrogen 17 mg/dL (8-23); Calcium 9.3 mg/dL (8.6-10.3); Carbon Dioxide 28 mEq/L (23-29); Chloride 104 mEq/L (98-107); Glucose 134 mg/dL (70-105); Osmolality,Calculated 292 (280-300); Potassium 3.5 mEq/L (3.5-5.1); Sodium 139 mEq/L (136-145); eGFR For African Americans > 60 (> 60); eGFR For Non-African Americans 50 (> 60)
[2020-04-18] MEDS ORDERED: Metoprolol 100 MG TABLET PO ONE (08:37)
[2020-04-18] MEDS ORDERED: Metoprolol XL (24 HR) Succ 50 MG TAB.ER.24H PO SCH (09:00)
[2020-04-18] MEDS: Gabapentin 300 MG CAPSULE PO SCH ×2 (09:01→16:48)
[2020-04-18] MEDS: Cholecalciferol (D-3) 1,000 UNIT (25MCG) TABLET PO SCH (09:01)
[2020-04-18] MEDS: Aspirin Enteric Coated 81 MG Tablet PO SCH (09:01)
[2020-04-18] MEDS: Cyanocobalamin (B-12) 1,000 MCG TABLET PO SCH (09:01)
[2020-04-18 11:14] VITALS: BP 154/75
== END 2020-04-18 18:48 | disposition home or self-care (01) ==
LOC: 3BNU 17:07 → EMEROOARM 17:07 → SUATTDRO 19:23 → 3BNU 19:45
PROVIDERS: ADMIT Internal Medicine Nephrology; ATTEND Pharmacist